=== PATIENT | female | born 1980 | race Two or more races ===

== ENCOUNTER 2022-09-25 20:29 | Emergency (ER) | payer OTHER ==
[~2022-09-25] VITALS: Ht 170.2 cm; Wt 136.1 kg
--- NOTE | 2022-09-25 20:31 | NUR ---
BIBRA 41 FROM HOME FOR DEPRESSION AND ANXIETY. ADMITTED TO DRINKING ALCOHOL. PT AAOX4, PLACED COMFORTABLY IN BED, VITALS CHECKED.
--- NOTE | 2022-09-25 20:57 | NUR ---
[employer] AT BEDSIDE
--- NOTE | 2022-09-25 20:58 | NUR ---
[employer] AT BED SIDE
--- NOTE | 2022-09-25 20:58 | NUR ---
COVID SWAB COLLECTED, SENT TO LAB
--- NOTE | 2022-09-25 21:00 | NUR ---
[employer] AT PT'S BEDSIDE
--- NOTE | 2022-09-25 21:02 | NUR ---
URINE COLLECTED, SENT TO LAB
[2022-09-25 21:18] LABS: BASOPHILS # (AUTO) 0.3 K/uL (0.0-0.2); EOSINOPHILS % (AUTO) 0.6 % (0.0-6.0); HEMATOCRIT 42 % (33-45); HEMOGLOBIN 13.2 g/dL (11.5-14.8); MEAN CORPUSCULAR HGB CONC 32 g/dl (31.0-36.0); MEAN CORPUSCULAR VOLUME 85 fL (82-100); MONOCYTES # (AUTO) 0.3 K/uL (0.1-1.30); MONOCYTES % (AUTO) 4.5 % (2.0-12.0); NEUTROPHILS # (AUTO) 3.3 K/uL (1.8-8.9); NEUTROPHILS % (AUTO) 55.7 % (43.0-81.0); PLATELET COUNT (AUTO) 541 K/uL (150-450); RED BLOOD CELL COUNT(AUTO) 4.89 MIL/uL (4.0-5.2); WHITE BLOOD COUNT (AUTO) 5.9 K/uL (4.3-11.0)
--- NOTE | 2022-09-25 21:21 | NUR ---
PER [employer]; PATIENT DOES NOT MEET THE CRITERIA OF BEING PLACED ON 5150 HOLD.
[2022-09-25 21:25] LABS: BILIRUBIN,URINE NEGATIVE (NEGATIVE); COLOR,URINE YELLOW (YELLOW); LEUKOCYTE ESTERASE ,URINE TRACE (NEGATIVE); NITRITE, URINE NEGATIVE (NEGATIVE); PROTEIN,URINE NEGATIVE (NEGATIVE); UGLUCOSE NEGATIVE (NEGATIVE); UROBILINOGEN,URINE 0.2 EU/dL (0.2)
[2022-09-25 21:29] LABS: BASOPHILS % (AUTO) 5.2 % (0.0-2.0)
[2022-09-25 21:33] LABS: BACTERIA,URINE RARE /HPF (None Seen); RBC,URINE 0-2 /HPF (0-2); SQUAMOUS EPITHELIAL CELL,UR 0-2 /HPF (None Seen)
[2022-09-25 21:33] LABS: ALANINE AMINOTRANSFERASE 28 U/L (12-78); ALBUMIN 3.9 g/dL (3.4-5.0); ALCOHOL, BLOOD 408 mg/dL (0-0); ALKALINE PHOSPHATASE 120 U/L (46-116); ASPARTATE AMINOTRANSFERASE 38 U/L (15-37); BILIRUBIN,DIRECT 0.1 mg/dL (0.0-0.2); BILIRUBIN,TOTAL 0.4 mg/dL (0.2-1.0); CALCIUM, SERUM 9.2 mg/dL (8.5-10.1); CARBON DIOXIDE 26 mmol/L (21-32); CHLORIDE 102 mmol/L (98-107); CREATININE 0.8 mg/dL (0.6-1.3); GLUCOSE 116 mg/dL (74-106); POTASSIUM 3.7 mmol/L (3.5-5.1); SODIUM SERUM 142 mmol/L (136-145); UREA NITROGEN, BLOOD 11 mg/dL (7-18)
--- NOTE | 2022-09-25 21:54 | NUR ---
CAlled KANWAL KOEHLER FOR PSYCH EVAL
--- NOTE | 2022-09-25 21:57 | NUR ---
DALE MADE AWARE OF THE ALCOHOL LEVEL
[2022-09-25 22:18] LABS: BASOPHILS % (MANUAL) 3 % (0.0-2.0); LYMPHOCYTES % (MANUAL) 31 % (16-48); MONOCYTES % (MANUAL) 8 % (0-11.0); NEUTROPHILS % (MANUAL) 58 (42-76)
--- NOTE | 2022-09-25 22:38 | NUR ---
KANWAL KOEHLER CRISIS TEAM IN ER DEPT FOR [facility]
--- NOTE | 2022-09-26 01:25 | NUR ---
PATIENT IS A, OX4. PO INTAKE TOLERATED WELL AND AMBULATORY WITH STEADY GAITS. REPORTED WILLING TO LEAVE. MADE AWWARE. OK FOR D/C PER DR CARTAGENA.
[2022-09-26 01:54] VITALS: BP 144/98
--- NOTE | 2022-09-26 01:54 | NUR ---
Patient discharged to home in stable condition. Written and verbal after care instructions given. Patient verbalizes understanding of instruction.
== END 2022-09-26 01:54 | disposition home or self-care (01) ==
LOC: ER 20:31
DX: R45.851 Suicidal ideations (principal); F32.A Depression, unspecified; F41.9 Anxiety disorder, unspecified; Z88.8 Allergy status to other drugs, medicaments and biological substances; Z20.822 Contact with and (suspected) exposure to COVID-19
CPT/HCPCS: 99285; 85025; 80048; 80076; 84703; 85007; 81001; 36415; 87426; 80143; 80320; 80307; C9803; G0480